=== PATIENT | male | born 1980 | race Caucasian/White ===

== ENCOUNTER 2020-01-30 11:18 | Emergency (ER) | payer SELFPAY ==
[2020-01-30 11:29] VITALS: BP 194/115; PULSE 108; RESP 16; TEMP 36.8; O2SAT 97; BMI 27.8
--- NOTE | 2020-01-30 11:40 | CTR_ITS ---
PROCEDURE INFORMATION: Exam: CT Angiography Chest With Contrast Exam date and time: 01/30/2020 12:00 PM Age: 39 years old Clinical indication: Other: Hemoptysis; Patient HX: Coughing up blood, intermittently x 1 month TECHNIQUE: Imaging protocol: Computed tomographic angiography of the chest with intravenous contrast. 3D rendering: MIP and/or 3D reconstructed images were created by the technologist. Radiation optimization: All CT scans at this facility use at least one of these dose optimization techniques: automated exposure control; mA and/or kV adjustment per patient size (includes targeted exams where dose is matched to clinical indication); or iterative reconstruction. Contrast material: OMNIPAQUE 350; Contrast volume: 95 ml; Contrast route: INTRAVENOUS (IV); COMPARISON: No relevant prior studies available. RADIATION DOSE METRICS: Total DLP (mGy-cm): 631.04 FINDINGS: Pulmonary arteries: No pulmonary embolus in the opacified pulmonary arteries. Aorta: Normal caliber of the thoracic aorta. Lungs: 2.5 cm right apical bleb. Mild interstitial prominence, without acute airspace disease. Inspissated mucus at the origin of the left upper lobe bronchus (series 2: Image 229). Pleural space: No pleural effusion prior Heart: Mild left ventricular hypertrophy. Lymph nodes: Subcentimeter lymph nodes. Upper abdomen: Hepatosplenomegaly and diffuse fatty infiltration of the liver. Bones/joints: Marginal osteophytes. CT/[place] angio [place] prot [id number] IMPRESSION: 1. No pulmonary embolus in the opacified pulmonary arteries. 2. Additional findings as described above. Radiation Dose CTDIVOL = (mGy): DLP = 631.04 (mGy-cm)
[2020-01-30 11:44] VITALS: RESP 17
--- NOTE | 2020-01-30 11:47 | ED_ITS ---
HPI - General Adult General: Chief complaint: General Medical Stated complaint: COUGHING UP BLOOD Time Seen by Provider: 01/30/20 11:20 History of Present Illness: HPI narrative: Patient reports episodic hemoptysis for the past month. He states that what he coughs up is fresh blood. Onset (ago): month(s) (1) Severity: moderate Relieving factors: none Exacerbating factors: none Associated symptoms: Reports cough, decreased appetite, dyspnea, malaise, short of breath and weakness Treatments prior to arrival: none Review of Systems General: Reports: 10 or more systems reviewed and unremarkable except in HPI and below Const: Reports: malaise Resp: Reports: dyspnea and hemoptysis PFS ED PFSH: Social History Smoking and tobacco status: former smoker Physical Exam Const: COMMON NORMALS: no acute distress, healthy appearing and well nourished GENERAL APPEARANCE: cooperative and well developed HENMT: COMMON NORMALS: normocephalic and atraumatic HEAD & SCALP: normal to inspection, normocephalic and atraumatic Eye: GENERAL EYE: appearance normal, both eyes and all related structures Neck/C-Spine: COMMON NORMALS: full ROM, no lymphadenopathy and no meningeal signs GENERAL: Yes normal visual inspection CERVICAL SPINE: Yes cervical ROM normal and Yes normal cervical lordosis Chest: COMMONS NORMALS: normal inspection of the chest and normal palpation of entire chest wall Resp: COMMON NORMALS: normal respiratory effort, clear to auscultation bilaterally and percussion normal AUSCULTATION: clear to auscultation bilaterally PERCUSSION: percussion normal Cardio: COMMON NORMALS: regular rate, regular rhythm, S1 normal heart sound present and S2 normal heart sound present JUGULAR VENOUS DISTENTION: no JVD PALPATION: normal PMI RATE: regular rate RHYTHM: regular rhythm HEART SOUNDS: S1 normal heart sound present and S2 normal heart sound present GI: COMMON NORMALS: Soft to palpation and No hepatosplenomegaly present INSPECTION: Yes normal to inspection PALPATION: Yes Soft to palpation and Yes No hepatosplenomegaly present PERCUSSION: normal to percussion : COMMON NORMALS: Yes no CVA tenderness BLADDER/KIDNEY EXAM: Yes no CVA tenderness Back/Pelvis: COMMON NORMALS: no CVA tenderness, thoracic and lumbar spine normal to inspection and thoraco-lumbar ROM normal Extremity: COMMON NORMALS: normal to inspection, full ROM and capillary refill normal Neuro: MENINGEAL SIGNS: Yes no meningeal signs Skin: COMMON NORMALS: no rashes or lesions noted, no wounds and turgor normal GENERAL SKIN EXAM: no rashes or lesions noted, elasticity normal and turgor normal LESIONS: no lesions RASHES: no rashes TRAUMA: no lacerations or abrasions HAIR: normal NAILS: normal Course Vital Signs: Vital signs: Vital Signs Temperature 98.2 F 01/30/20 11:29 Pulse Rate 93 01/30/20 13:25 Respiratory Rate 17 01/30/20 15:00 Blood Pressure 194/115 01/30/20 11:29 Pulse Oximetry 96 01/30/20 13:25 [facility] - General Adult Lab Data: Labs: Lab Results 01/30/20 01/30/20 Range/Units 12:02 12:02 WBC 7.8 (4.0-10.0) 10^3/ uL RBC 5.00 (4.1-5.3) 10^6/u L Hgb 16.9 H (11.7-16.6) g/dL Hct 44.9 (42.0-52.0) % MCV 89.8 (80-94) fL MCH 33.8 (28.0-34.0) pg MCHC 37.6 H (30.0-36.0) g/dL RDW 11.9 L (12.1-15.1) % Plt Count 244 (130-400) 10^3/c mm MPV 11.3 H (7.4-10.4) fL Neut % (Auto) 67.9 % Lymph % (Auto) 23.2 % [place] % (Auto) 5.9 % Eos % (Auto) 1.8 % Baso % (Auto) 0.8 % Neut # (Auto) 5.3 (1.8-7.7) 10^3/u L Lymph # (Auto) 1.8 (0.8-4.8) 10^3/u L [place] # (Auto) 0.5 (0.2-0.9) 10^3/u L Eos # (Auto) 0.1 (0.0-0.8) 10^3/u L Baso # (Auto) 0.1 (0.0-0.1) 10^3/u L Nucleated RBC % (a uto) 0 % Nucleated RBCs # 0.0 /100WBC PT 12.10 (10.5-13.3) SECO NDS INR 0.88 (0.8-1.2) APTT 29.6 (23.9-36.7) SECO NDS D-Dimer 0.64 H (0-0.59) ug/mIFE U Discharge Plan Discharge Patient Disposition: Home, Self-Care Clinical Impression: Hemoptysis Condition: Stable Prescriptions: New Bactrim DS 800-160 mg tablet 1 tab PO BID 10 Days Qty: 20 RF: 0 prednisone 10 mg tablets,dose pack See Rx Instructions .ROUTE .COMPLEX Qty: 21 RF: 0 Discharge Orders: Discharge Order (Routine); Ordered 01/30/20 Ordered By: Conner Corbin Coding Level of Care Code ED 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
[2020-01-30 12:30] LABS: Basophils # 0.1 10^3/uL (0.0-0.1); Basophils % 0.8 %; Eosinophils # 0.1 10^3/uL (0.0-0.8); Eosinophils % 1.8 %; Hematocrit 44.9 % (42.0-52.0); Hemoglobin 16.9 g/dL (11.7-16.6); Lymphocytes # 1.8 10^3/uL (0.8-4.8); Lymphocytes % 23.2 %; Mean Corpuscular HGB Conc 37.6 g/dL (30.0-36.0); Mean Corpuscular Hemoglobin 33.8 pg (28.0-34.0); Mean Corpuscular Volume 89.8 fL (80-94); Mean Platelet Volume 11.3 fL (7.4-10.4); Monocytes # 0.5 10^3/uL (0.2-0.9); Monocytes % 5.9 %; Neutrophils # 5.3 10^3/uL (1.8-7.7); Neutrophils % 67.9 %; Nucleated Red Blood Cells % 0 %; Platelet Count 244 10^3/cmm (130-400); Red Cell Distribution Width 11.9 % (12.1-15.1); White Blood Count 7.8 10^3/uL (4.0-10.0)
[2020-01-30 13:04] LABS: D Dimer 0.64 ug/mIFEU (0-0.59); INR 0.88 (0.8-1.2); Partial Thromboplastin Time 29.6 SECONDS (23.9-36.7)
[2020-01-30 13:25] VITALS: PULSE 93; RESP 17; O2SAT 96
[2020-01-30 15:00] VITALS: RESP 17
[2020-01-30 16:32] VITALS: BP 153/109; PULSE 99; RESP 15; O2SAT 97
== END 2020-01-30 15:56 | disposition home or self-care (01) ==
PROVIDERS: Emergency Provider Family Medicine
DX: R04.2 Hemoptysis (principal); Z87.891 Personal history of nicotine dependence
CPT/HCPCS: 12345; 36415; 71275; 85025; 85378; 85610; 85730; 99283; Q9967

== ENCOUNTER → 2021-04-19 15:00 | Outpatient (BNVA) | payer OTHER, SELFPAY | PROVIDERS: Visit Provider Nurse Practitioner Family | DX: Z20.822 Contact with and (suspected) exposure to COVID-19 (principal) | CPT/HCPCS: 87635 ==

== ENCOUNTER 2025-01-12 06:43 | Emergency (ER) | payer SELFPAY ==
[2025-01-12 07:23] VITALS: BP 106/68; PULSE 82; RESP 19; TEMP 36.7; O2SAT 100; BMI 25.1
--- NOTE | 2025-01-12 08:56 | ED_ITS ---
HPI - Back Pain/Injury General: Chief Complaint: Back Pain/Injury Stated Complaint: low back pain Time Seen by Provider: 01/12/25 08:37 Source: patient Mode of arrival: ambulatory Limitations: no limitations History of Present Illness: 44-year-old female who states that histo ry of back pain in the past states he was clearing brush last week and started having right lower back pain. States the pain is worsened over the last few days with pain shooting down his right leg he rates his pain 8 out of 10 is worse with movement improved with rest denies any bowel or bladder incontinence Associated symptoms: Deny abdominal pain, chills, fever(s), nausea or vomiting Related Data Home Medications ?Medication ?Instructions ?Recorded ?Confirmed esomeprazole magnesium 20 mg 20 mg PO DAILY 04/19/21 0 04/19/21 capsule,delayed release (Nexium) Previous Rx's ?Medication ?Instructions ?Recorded hydrocodone 5 mg-acetaminophen 325 1 tab PO Q6H PRN pa in #14 tabs 01/12/25 mg tablet methocarbamol 750 mg tablet 750 mg PO Q6H PRN spasms # 20 tabs 01/12/25 naproxen 500 mg tablet (Naprosyn) 500 mg PO BID PRN pa in #20 tabs 01/12/25 Allergies Allergy/AdvReac Type Severity Reaction Status Date / Time No Known Allergies Allergy Verified 04/19/21 13:45 Review of Systems Const: Denies: fever(s), chills, body aches or change in appetite ENMT: Denies: throat pain or dental pain Card: Denies: chest pain Resp: Denies: dyspnea GI: Denies: abdominal pain, nausea, vomiting or diarrhea Musc: Reports: back pain; Denies: neck pain Skin/Breast: Denies: rash Neuro: Denies: headache(s) PFSH ED PFSH: Social History Smoking and tobacco/nicotine status: former use of tobacco/nicotine Physical Exam Const: COMMON NORMALS: no acute distress, patient oriented x3 and healthy appearing HENMT: COMMON NORMALS: normocephalic and atraumatic HEAD & SCALP: normocephalic and atraumatic Eye: COMMON NORMALS: conjunctivae normal CONJUNCTIVA: Yes conjunctivae normal Neck/C-Spine: COMMON NORMALS: full ROM and supple Chest: COMMONS NORMALS: normal inspection of the chest Resp: COMMON NORMALS: normal respiratory effort Cardio: COMMON NORMALS: regular rate RATE: regular rate Back/Pelvis: OTHER: No midline tenderness tenderness down right lower back no saddle anesthesia Extremity: COMMON NORMALS: normal to inspection and full ROM Neuro: COMMON NORMALS: patient oriented x3, moves all extremities and no focal motor deficits Psych: COMMON NORMALS: mental status grossly normal, Normal thought process present and cooperative THOUGHT PROCESS: Normal thought process present Skin: COMMON NORMALS: no rashes or lesions noted and no wounds GENERAL SKIN EXAM: no rashes or lesions noted Course Vital Signs: Vital signs: Vital Signs Temperature 98.0 F 01/12/25 07:23 Pulse Rate 82 01/12/25 07:23 Respiratory Rate 19 H 01/12/25 07:23 Blood Pressure 106/68 01/12/25 07:23 Pulse Oximetry 100 01/12/25 07:23 Oxygen Delivery Me thod Room Air 01/12/25 07:23 MDM - Back Pain/Injury Medical Decision Making Patient presents here with low back pain with sciatica he is well-appearing here no signs of cord compression or epidural abscess he stable for discharge follow- up PCP return if worsening. Medical Records I reviewed the patient's medical records. No radiology studies performed this visit Discharge Plan Discharge Patient Disposition: Home Clinical Impression: Back pain of lumbar region with sciatica Condition: Stable Prescriptions: New hydrocodone-acetaminophen 5-325 mg tablet 1 tab PO Q6H PRN (Reason: pain) Qty: 14 0RF methocarbamol 750 mg tablet 750 mg PO Q6H PRN (Reason: spasms) Qty: 20 0RF naproxen [Naprosyn] 500 mg tablet 500 mg PO BID PRN (Reason: pain) Qty: 20 0RF No Action esomeprazole magnesium [Nexium] 20 mg capsule,delayed release(DR/EC) 20 mg PO DAILY Discharge Orders: Discharge ED (Routine); Ordered 01/12/25 Ordered By: Ayanna Batista Discharge Diet: Advance as tolerated Discharge Activity: Resume usual activity Patient Instructions: Sciatica (ED), Lumbar Radiculopathy (ED), Lower Back Exercises (ED), Opioid Safety Print Language: Cook Islander Coding Level of Care Code ED 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
[2025-01-12] MEDS: methocarbamol 750 mg Tablet 1500 MG PO (09:19)
[2025-01-12] MEDS: HYDROcodone-acetaminophen 7.5-325 mg Tablet 1 TAB PO (09:19)
[2025-01-12] MEDS: ketorolac 60 mg/2 mL INJ IM (09:20)
[2025-01-12] MEDS: dexamethasone 10 mg/mL INJ IM (09:20)
[2025-01-12 09:44] VITALS: BP 131/71; PULSE 65; O2SAT 97
== END 2025-01-12 09:44 | disposition home or self-care (01) ==
PROVIDERS: Emergency Provider Emergency Medicine
DX: M54.31 Sciatica, right side (principal); M54.50 Low back pain, unspecified; Z87.891 Personal history of nicotine dependence
CPT/HCPCS: 96372; 99284; J1100; J1885; J9999

== ENCOUNTER 2025-01-28 00:09 | Emergency (ER) | payer SELFPAY ==
[2025-01-28 00:27] VITALS: BP 150/83; PULSE 78; RESP 18; TEMP 36.7; O2SAT 97; BMI 25.1
--- NOTE | 2025-01-28 01:33 | W.ED.BACK ---
HPI - Back Pain/Injury General: Chief Complaint: Back Pain/Injury Stated Complaint: Lower Back Pain Time Seen by Provider: 01/28/25 00:17 History of Present Illness: Patient is a male presenting to the ED with complaint of low back pain with radiation down the right leg that has been worsening over the past two weeks. Patient reports the original back injury occurred approximately 8 years ago. Two weeks ago, he was clearing brush when he experienced an acute exacerbation of his back pain. He states he was seen in the ED two weeks ago and received a steroid injection. He subsequently saw his primary care physician who prescribed prednisone. Patient reports the pain returned immediately after completing the steroid course. The pain is described as severe and radiating down the posterior aspect of his right leg. He reports numbness in both feet, which he states has been present for years and attributes to neuropathy from his back condition. Patient states he is unable to walk for more than 10 seconds without experiencing excruciating pain. He also reports difficulty with urination, stating he has to stand on one leg to urinate, though denies werner urinary incontinence. Patient reports he cannot sleep due to the pain. He states that in a previous ED visit, he was prescribed amitriptyline (Elavil) which significantly helped his nerve pain. Related Data Home Medications ?Medication ?Instructions ?Recorded ?Confirmed esomeprazole magnesium 20 mg 20 mg PO DAILY 04/19/21 01/20/25 capsule,delayed release (Nexium) lisinopril 40 mg tablet 40 mg PO DAILY 01/20/25 01/20/25 Previous Rx's ?Medication ?Instructions ?Recorded methocarbamol 750 mg tablet 750 mg PO Q6H PRN spasms #20 tabs 01/12/25 naproxen 500 mg tablet (Naprosyn) 500 mg PO BID PRN pain #20 tabs 01/12/25 hydrocodone 5 mg-acetaminophen 325 1 tab PO Q6H PRN pain 5 days #20 01/20/25 mg tablet tabs methocarbamol 750 mg tablet 750 mg PO Q8H #30 tabs 01/20/25 amitriptyline 25 mg tablet 25 mg PO DAILY #30 tabs 01/28/25 Allergies Allergy/AdvReac Type Severity Reaction Status Date / Time No Known Allergies Allergy Verified 01/20/25 12:11 [facility] ED PFSH: Social History (Reviewed 01/20/25 @ 13:01 by DOREEN Britt Smoking and tobacco/nicotine status: unknown if used tobacco/nicotine Course Vital Signs: Vital signs: Vital Signs Temperature 98.0 F 01/28/25 00:27 Pulse Rate 78 01/28/25 00:27 Respiratory Rate 18 01/28/25 00:27 Blood Pressure 150/83 01/28/25 00:27 Pulse Oximetry 97 01/28/25 00:27 Oxygen Delivery Me thod Room Air 01/28/25 00:27 MDM - Back Pain/Injury Medical Decision Making ROS: Constitutional: Reports inability to sleep due to pain. Musculoskeletal: Reports severe low back pain with radiation down right leg, numbness in both feet. Neurological: Reports right leg numbness, sensation of leg 'going to explode, ' and chronic neuropathy in feet. Genitourinary: Reports difficulty with urination but denies incontinence or inability to void. Denies loss of genital sensation. All other systems reviewed and negative. MEDICATIONS AND ALLERGIES: Meds: Antihypertensive medication (40mg, specific medication not specified), cholesterol medication (Lipitor), Nexium (taken every 3 days), Tylenol and ibuprofen as needed for pain Allergies: No known drug allergies PAST HISTORICAL DATA: PMH: Hypertension, hyperlipidemia, chronic low back pain with previous MRI 8 years ago showing disc issues, chronic neuropathy PSH: None specified Social: No alcohol, tobacco, or drug use mentioned PHYSICAL EXAM: General: Alert, in moderate distress due to pain HEENT: Head normocephalic and atraumatic. Mucous membranes moist. Neck: Supple Respiratory: No increased work of breathing, no wheezing Cardiac: Regular rate and rhythm, 2+ pulses in all extremities Abdomen: Soft, non-distended, no rebound or guarding Neuro: Cranial nerves grossly intact. Patient able to lift left leg with mild discomfort. Limited ability to lift right leg due to pain. Intact sensation to genitals. Decreased sensation noted in both feet. Motor strength 5/5 in left lower extremity, 4/5 in right lower extremity. Patient able to push down with foot and pull toes back toward body. Musculoskeletal: No tenderness to palpation in lumbar spine. Limited range of motion due to pain. INITIAL IMPRESSION AND PLAN: Given the history and presentation, the primary working diagnosis is low back pain with radiculopathy. Additional considerations include lumbar disc herniation, spinal stenosis, and cauda equina syndrome (though less likely given preserved genital sensation and absence of urinary incontinence). Based on this initial impression I will order: 1. Pain management with Toradol 60mg IM and Dilaudid 1mg IM 2. Prescription for amitriptyline 25mg daily for neuropathic pain 3. Recommendation to continue alternating Tylenol and ibuprofen for pain control 4. Discharge with instructions to follow up with primary care physician for further evaluation including possible MRI and physical therapy TEST INTERPRETATIONS: No diagnostic tests were ordered or interpreted during this encounter. PROCEDURES: Medication administration: - Dilaudid 1mg IM administered for acute pain management - Toradol 60mg IM administered for anti-inflammatory effect and pain management CONSIDERED BUT NOT PERFORMED: MRI of lumbar spine CONSIDERED but NOT DONE due to this being an acute exacerbation of a chronic condition that would be more appropriately managed by the patient's primary care physician with outpatient imaging. Gabapentin CONSIDERED but NOT DONE as patient reported previous good response to amitriptyline for neuropathic pain, and preferred to try this medication again rather than starting a new medication. Additional steroid treatment CONSIDERED but NOT DONE as patient recently completed a course of prednisone, and prolonged steroid use is not recommended. FINAL IMPRESSION: Based on all the above, my clinical impression is most compatible with low back pain with right-sided lumbar radiculopathy. The clinical picture is not currently suggestive of cauda equina syndrome, spinal abscess, or spinal fracture. Although other conditions were also considered, they were deemed unlikely based on the clinical information available. CLINICAL DISPOSITION: The patient's current condition is stable in my estimation and the most appropriate and indicated disposition at this time is discharge home with medications and outpatient follow-up. The patient is safe for discharge as he has no evidence of cauda equina syndrome (no saddle anesthesia, no urinary incontinence or retention, and preserved genital sensation). He has received parenteral pain medication in the ED with improvement in symptoms. He has a clear plan for outpatient follow-up with his primary care physician and has been prescribed appropriate medication for neuropathic pain management. The patient understands return precautions and has reliable transportation home. RISK STRATIFICATION AND CLINICAL DECISION RULES APPLIED: Red flag assessment for back pain - Low risk. Patient has chronic back pain with acute exacerbation. No fever, no history of cancer, no unexplained weight loss, no saddle anesthesia, no urinary retention or incontinence, and no bilateral neurological deficits. While patient reports some urinary symptoms, he denies incontinence and has preserved genital sensation, making cauda equina syndrome unlikely. CASE SUMMARY: Male patient with history of hypertension, hyperlipidemia, and chronic low back pain presented to the ED with severe low back pain radiating down the right leg that has worsened over the past two weeks after clearing brush. Patient was previously seen in the ED two weeks ago and received a steroid injection, followed by a course of oral prednisone from his PCP, with temporary relief. Physical examination revealed intact sensation to genitals, decreased sensation in both feet, and pain with movement of the right leg. Patient was treated with Dilaudid 1mg IM and Toradol 60mg IM for pain control with improvement in symptoms. He was prescribed amitriptyline 25mg daily for neuropathic pain based on his previous positive response to this medication. Patient was advised to continue alternating Tylenol and ibuprofen for pain control. He was discharged home in stable condition with instructions to follow up with his primary care physician for further evaluation including possible MRI and physical therapy. Clear return precautions were provided. No radiology studies performed this visit Discharge Plan Discharge Patient Disposition: Home Clinical Impression: Lumbar radiculopathy, Sciatica Condition: Stable Prescriptions: New amitriptyline 25 mg tablet 25 mg PO DAILY Qty: 30 0RF No Action esomeprazole magnesium [Nexium] 20 mg capsule,delayed release(DR/EC) 20 mg PO DAILY lisinopril 40 mg tablet 40 mg PO DAILY hydrocodone-acetaminophen 5-325 mg tablet 1 tab PO Q6H PRN (Reason: pain) 5 Days Qty: 20 0RF methocarbamol 750 mg tablet 750 mg PO Q8H Qty: 30 0RF methocarbamol 750 mg tablet 750 mg PO Q6H PRN (Reason: spasms) Qty: 20 0RF naproxen [Naprosyn] 500 mg tablet 500 mg PO BID PRN (Reason: pain) Qty: 20 0RF Discharge Orders: Discharge ED (Routine); Ordered 01/28/25 Ordered By: Emir Quan Discharge Activity: Increase activity as tolerated Patient Instructions: Sciatica (ED), Lumbar Radiculopathy (ED), Opioid Safety, Pain Management Activity Restrictions/Additional Instructions: DISCHARGE INSTRUCTIONS: Diagnosis: Low back pain with radiculopathy (sciatica) Medications: 1. Amitriptyline 25mg - Take 1 tablet by mouth at bedtime daily 2. Continue alternating Tylenol and ibuprofen as needed for pain: - Tylenol (acetaminophen): 650-1000mg every 6 hours as needed, not to exceed 3000mg in 24 hours - Ibuprofen: 600mg every 6 hours as needed with food, not to exceed 2400mg in 24 hours Home Care Instructions: 1. Apply ice or heat to the affected area for 20 minutes at a time, several times per day 2. Avoid heavy lifting, bending, or twisting 3. Try to maintain gentle movement as tolerated - complete bed rest is not recommended 4. Sleep on a firm mattress, consider placing a pillow between your knees when sleeping on your side 5. Gradually increase activity as pain allows Follow-up: Schedule an appointment with your primary care physician within 1 week for further evaluation and consideration of MRI and physical therapy referral. Return to the Emergency Department immediately if you experience: 1. Loss of control of your bladder or bowels 2. Inability to urinate 3. Numbness in the genital/rectal area 4. Severe or worsening weakness in your legs 5. Fever above 101?F 6. 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
[2025-01-28] MEDS: HYDROmorphone 0.5 MG/0.5 ML INJ 1 MG IM (02:02)
[2025-01-28] MEDS: ketorolac 60 mg/2 mL INJ IM (02:02)
[2025-01-28 03:12] VITALS: BP 147/89; PULSE 84; RESP 19; O2SAT 97
== END 2025-01-28 03:13 | disposition home or self-care (01) ==
PROVIDERS: Emergency Provider Student in an Organized Health Care Education/Training Program
DX: M54.16 Radiculopathy, lumbar region (principal); M54.30 Sciatica, unspecified side
CPT/HCPCS: 96372; 99284; J1171; J1885